=== PATIENT | female | born 1955 | race Native Hawaiian/Other Pacific Islander ===

== ENCOUNTER 2017-01-10 07:30 | Day surgery (SDC) | payer OTHER ==
[2016-12-31 07:26] VITALS: BMI 24.7
[2017-01-10] MEDS ORDERED: Propofol 10 mg/ml Inj (20 ML) ONE ×2 (09:33→09:59)
[2017-01-10] MEDS ORDERED: Midazolam 2 MG/2 ML VIAL ONE (09:33)
[2017-01-10] MEDS ORDERED: Lactated Ringer's 1,000 ML IV ONE (09:35)
[2017-01-10] MEDS ORDERED: cefTRIAXone IV 1 gm in Dextros 50 ML IVPB ONE (09:36)
[2017-01-10] MEDS ORDERED: Iohexol 240 (50 ml) ONE (09:36)
[2017-01-10] MEDS ORDERED: HYDROmorphone 0.5 mg/0.5 ml ISec IVP PRN (10:11)
--- NOTE | 2017-01-10 10:29 | PCM.SURG1 ---
Surgeon's Initial Post Op Note - Surgeon's Notes Surgeon: feroz lopez Apprentice Funeral Director: none Type of Anesthesia: IV Sedation Pre-Operative Diagnosis: microhematuria Operative Findings: trigonitis Post-Operative Diagnosis: same Operation Performed: cysto,. bilat rtg pyelogram. bladder bx and fulg. eua Specimen/Specimens Removed: urine. bladder bx Estimated Blood Loss: EBL {In ML}: 0 Blood Products Given: N/A Drains Used: No Drains Post-Op Condition: Good Date of Surgery/Procedure: 01/10/17 Time of Surgery/Procedure: 10:15
[2017-01-10 11:49] VITALS: BP 110/70; PULSE 80; RESP 18; TEMP 96.8; O2SAT 100
--- NOTE | 2017-01-10 15:27 | RAD ---
HISTORY: HEMATURIA COMPARISON: None. FINDINGS: BOWEL: Constipation without fecal impaction or obstruction. Macro BONES: Normal. OTHER FINDINGS: None. IMPRESSION: No acute findings related to/accounting for the clinical presentation.
--- NOTE | 2017-01-10 16:19 | RAD ---
PROCEDURE: Intraoperative Fluoroscopy. HISTORY: HEMATURIA FINDINGS: Fluoroscopic assistance was provided for cystogram in retrograde study. Total fluoroscopic time (continuous mode) utilized during the procedure: 14.1 seconds.. Please refer to the operative report from
--- NOTE | 2017-01-10 23:52 | OP ---
PROCEDURE DATE: 01/10/2017 PREOPERATIVE DIAGNOSIS: Microhematuria. POSTOPERATIVE DIAGNOSIS: Microhematuria, encrusted trigonitis. PROCEDURE: 1. Cystoscopy. 2. Bilateral retrograde pyelogram. 3. Bladder biopsy and fulguration. Exam under anesthesia. OPERATING SURGEON: Dr. Apple Cuevas MD Procedure was performed under video-endoscopic control as well as under fluoroscopic control. DESCRIPTION OF PROCEDURE: As follows, the patient received perioperative antibiotics. The patient was placed in lithotomy position. Genitalia was prepped and draped sterilely. Sedation was provided by the anesthesiologist. A 22-Divehi cystoscope sheath was introduced to the obturator. The urethra was plugged to the 22-Divehi scope. The urine was sent for bacteriologic and cytologic examination. The bladder was inspected with 30 degree and 70 degree lenses. FINDINGS: There was slight bladder trabeculation. There was no bladder tumor. There was no bladder stone. The bladder neck was normal without evidence of mucosal lesions or polyps. The trigone demonstrated [id number] inflammation. There was one area of encrusted cystitis on the trigone. The lateral dome of the bladder was normal. The ureteral orifices were in normal position and shape. Occlusive tip retrograde ureteropyelogram was performed. Iodinated contrast dye was instilled via cone tip catheter into each ureteral orifices. The ureters and the kidneys were viewed sequentially with fluoroscopy. Post-drainage film was fluoroscopically obtained as well. The retrograde pyelogram was demonstrated with no evidence of filling defect or obstruction within the ureters or collecting system. There was excellent drainage on the post-drainage films. The area of the abnormal mucosa on the trigone was biopsied using cold-cup biopsy forceps. Fulguration was performed with ball electrode and electrocautery. Hemostasis was completed. The bladder was reinspected with the 70-degree lens and confirm the above findings. The bladder was then drained. Cystoscope sheath removed. Lidocaine jelly was so previously exposed to postoperative analgesia. Exam under anesthesia was performed. There was no abnormal pelvic mass, fixation or induration. There is mild urethral distances and hypermobility. The patient was returned to the supine position. The patient tolerated the procedure without complication. Apple Cuevas MD cc:
== END 2017-01-10 12:41 | disposition home or self-care (01) ==
LOC: C.SDS 07:30
PROVIDERS: ATTEND Urology
DX: N30.31 Trigonitis with hematuria (principal); M81.0 Age-related osteoporosis without current pathological fracture
CPT/HCPCS: 52005; 52234; 74000; 76000; 87086; 88104; 88305; C1758; J0696; J7120

== ENCOUNTER 2017-12-30 10:58 | Emergency (ER) | payer OTHER ==
[2017-12-30 10:58] VITALS: BMI 24.7
[2017-12-30 11:36] VITALS: RESP 18; TEMP 97.7; O2SAT 98
[2017-12-30] MEDS ORDERED: Labetalol 5 mg/ml Inj 20ML IV STA ×2 (11:46→13:46)
--- NOTE | 2017-12-30 12:06 | RAD ---
Date of service: 12/30/2017 HISTORY: SOB COMPARISON: No prior. TECHNIQUE: Chest PA and lateral FINDINGS: LUNGS: No active pulmonary disease. PLEURA: No significant pleural effusion identified. No pneumothorax apparent. CARDIOVASCULAR: Normal. OSSEOUS STRUCTURES: No significant abnormalities. VISUALIZED UPPER ABDOMEN: Normal. OTHER FINDINGS: None. IMPRESSION: No active disease.
[2017-12-30 12:15] LABS: BASO % 0.8 % (0.0-2.0); EOS # 0.3 K/uL (0.0-0.7); HEMOGLOBIN 12.6 g/dL (11.0-16.0); LYMPH # 2.2 K/uL (1.0-4.3); LYMPH % 35.2 % (20.0-40.0); MEAN CELL VOLUME 94.4 fL (81.0-99.0); MEAN CORPUSCULAR HEMOGLOBIN 32.5 pg (27.0-31.0); MEAN CORPUSCULAR HGB CONC 34.4 g/dL (33.0-37.0); MEAN PLATELET VOLUME 7.7 fL (7.2-11.7); MONO # 0.6 K/uL (0.0-0.8); NEUT # 3.2 K/uL (1.8-7.0); NRBC % 0.1 % (0.0-2.0); RBC 3.89 Mil/uL (3.80-5.20); RED CELL DISTRIBUTION WIDTH 13.4 % (11.5-14.5); WHITE BLOOD COUNT 6.3 K/uL (4.8-10.8)
[2017-12-30 12:24] LABS: ALB/GLOB RATIO 1.2 (1.0-2.1); ALBUMIN 4.3 g/dL (3.5-5.0); ALT/SGPT 33 U/L (9-52); AST/SGOT 28 U/L (14-36); BLOOD UREA NITROGEN 12 mg/dL (7-17); CALCIUM 9.1 mg/dl (8.6-10.4); GFR NON-AFRICAN AMERICAN > 60
[2017-12-30 12:43] LABS: URINE BACTERIA RARE (<OCC); URINE BILIRUBIN NEGATIVE (NEGATIVE); URINE CLARITY Clear (Clear); URINE COLOR Straw (YELLOW); URINE GLUCOSE (UA) NORMAL (Normal); URINE LEUKOCYTE ESTERASE 1+ Leu/uL (Negative); URINE PROTEIN NEGATIVE (NEGATIVE); URINE UROBILINOGEN NORMAL mg/dL (0.2-1.0)
[2017-12-30 12:45] LABS: URINE BLOOD 1+ (NEGATIVE)
--- NOTE | 2017-12-30 13:52 | C.PDOC ---
History Of Present Illness 62yo female, presents to the emergency department with complaints of high blood pressure. Patient states she gave blood to the [employer] last week and noted her blood pressure to be elevated. States she repeated it again today and noted that it remained high, prompting visit. Denies any nausea/vomiting, headache, fever, chest pain, or any other associated symptoms. No other complaints at this time. Time Seen by Provider: 12/30/17 11:16 Chief Complaint (Nursing): High Blood Pressure History Per: Patient History/Exam Limitations: no limitations Past Medical History Reviewed: Historical Data, Nursing Documentation, Vital Signs Vital Signs: Last Vital Signs Temp 97.7 F 12/30/17 11:10 Pulse 79 12/30/17 13:50 Resp 18 12/30/17 13:50 BP 143/88 12/30/17 13:50 Pulse Ox 98 12/30/17 13:56 - Medical History PMH: Colonic Polyps, Osteoporosis - [facility] ENDOSC POLYPECTOMY OF LG INTEST (01/11/14) Family History: States: No Known Family Hx - Social History Hx Alcohol Use: No Hx Substance Use: No - Immunization History Hx Tetanus Toxoid Vaccination: Yes Hx Influenza Vaccination: Yes Hx Pneumococcal Vaccination: Yes Review Of Systems Constitutional: Negative for: Fever, Chills Cardiovascular: Negative for: Chest Pain, Palpitations Respiratory: Negative for: Shortness of Breath Gastrointestinal: Negative for: Nausea, Vomiting Skin: Negative for: Rash Neurological: Negative for: Weakness, Numbness Physical Exam - Physical Exam Appears: Non-toxic, No Acute Distress Skin: Normal Color, Warm, Dry, No Rash Head: Atraumatic, Normacephalic Eye(s): bilateral: Normal Inspection, PERRL, EOMI Nose: Normal Oral Mucosa: Moist Lips: Normal Appearing Neck: Normal ROM Cardiovascular: Rhythm Regular, No Murmur Respiratory: Normal Breath Sounds, No Accessory Muscle Use Gastrointestinal/Abdominal: Soft, No Tenderness Back: Normal Inspection Extremity: Normal ROM, No Deformity Neurological/Psych: Oriented x3, Normal Speech ED Course And Treatment - Laboratory Results Result Diagrams: 12/30/17 12:08 12/30/17 12:08 O2 Sat by Pulse Oximetry: 98 Pulse Ox Interpretation: Normal (RA) Medical Decision Making Medical Decision Making: Plan: * EKG * Bloodwork * Chest X-Ray * Trandate * UA * Reassess and Disposition Disposition Counseled Patient/Family Regarding: Studies Performed, Diagnosis, Need For Followup, Rx Given - Disposition Referrals: Trevon Jordan MD [Staff Provider] - Disposition: HOME/ ROUTINE Disposition Time: 13:52 Condition: STABLE Additional Instructions: follow up your doctor within 2 days call to make an appointment take medications as prescribed return to ER if symptoms worsens or progress Prescriptions: amLODIPine [Norvasc] 5 mg PO DAILY #10 tab Instructions: High Blood Pressure in Adults Forms: [facility] (Yi), General Discharge Instructions - Clinical Impression Clinical Impression: Hypertension - Scribe Statement The provider has reviewed the documentation as recorded by the Scribe (Sergio Bryson) All medical record entries made by the Scribe were at my direction and personally dictated by me. I have reviewed the chart and agree that the record accurately reflects my personal performance of the history, physical exam, medical decision making, and the department course for this patient. I have also personally directed, reviewed, and agree with the discharge instructions and disposition.
[2017-12-30 13:55] VITALS: BP 143/88; PULSE 79
--- NOTE | 2018-01-03 22:28 | CARD ---
APPROVED REPORT Date of service: 12/30/2017 EKG Measurement Heart [id number] <Conclusion> Normal sinus rhythm Normal ECG
== END 2017-12-30 14:07 | disposition home or self-care (01) ==
LOC: C.ER 10:58
DX: I10 Essential (primary) hypertension (principal)

== ENCOUNTER 2018-04-12 15:24 | Outpatient (CLI) | payer OTHER | END 2018-05-08 12:10 | disposition home or self-care (01) | LOC: C.MAMMO 15:24 | DX: Z12.31 Encounter for screening mammogram for malignant neoplasm of breast (principal) ==

== ENCOUNTER 2018-05-26 19:05 | Outpatient (CLI) | payer OTHER | END 2018-05-26 19:06 | disposition home or self-care (01) | LOC: C.SLEEP 19:06 ==